=== PATIENT | female | born 2005 | race African-American/Black ===

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

== ENCOUNTER 2024-04-23 19:39 | Emergency (ER) | payer SELFPAY ==
[~2024-04-23] VITALS: Ht 160 cm; Wt 63.5 kg
[2024-04-23] MEDS ORDERED: SODIUM CHLORIDE 0.9% 1,000 ML IV STA (20:12)
[2024-04-23] MEDS ORDERED: ACETAMINOPHEN 500 MG TAB PO ONE (20:15)
[2024-04-23] MEDS ORDERED: KETOROLAC TROMETHAMINE 30 MG/ML SDV IV ONE (20:15)
[2024-04-23 20:42] LABS: BASO% 0.1 % (0-3); EOS% 1.2 % (0-8); HEMOGLOBIN 13.5 g/dl (12.0-16.0); LYMPH% 23.3 % (15-41); MEAN CORPUSCULAR HGB 26.9 pG CALC (26.0-32.0); MEAN CORPUSCULAR HGB CONC 30.8 g/dL CAL (32.0-36.0); MONO% 9.9 % (2-13); NEUT# 5.94 thou/uL (2.00-7.15); NEUT% 65.5 % (42-76); RED BLOOD COUNT 5.02 mill/uL (4.20-5.60); RED CELL DISTRI WIDTH 13.7 % (11.5-15.5)
[2024-04-23 20:43] LABS: URINE BILIRUBIN - DIPSTICK Negative (NEGATIVE); URINE BLOOD DIPSTICK Negative (NEGATIVE); URINE COLOR Yellow; URINE GLUCOSE - DIPSTICK Negative (NEGATIVE); URINE KETONE Negative (NEGATIVE); URINE LEUK ESTERASE Small (NEGATIVE); URINE NITRITE - DIPSTICK Negative (Negative); URINE PROTEIN - DIPSTICK 30 mg/dL (NEG-TRACE); URINE SPECIFIC GRAVITY 1.015
[2024-04-23 20:44] LABS: HEMATOCRIT 43.8 % (37.0-47.0); MEAN CELL VOLUME 87.3 fL CALC (80.0-100.0)
[2024-04-23 20:49] LABS: URINE RBC 0-2 RBC/hpf (0-5)
[2024-04-23 20:50] LABS: URINE SQUAMOUS EPITHELIAL CELL MODERATE EPI/hpf (0-FEW)
[2024-04-23 20:51] LABS: URINE BACTERIA FEW hpf
[2024-04-23 20:52] LABS: URINE AMORPH SEDIMENT FEW hpf (NONE-FEW)
[2024-04-23 20:54] LABS: BILIRUBIN, TOTAL 0.5 mg/dL (0.02-1.3); CREATININE 0.8 mg/dL (0.5-1.0); POTASSIUM 4.5 mmol/l (3.5-5.1); TOTAL PROTEIN 8.7 g/dL (6.3-8.2)
[2024-04-23] MEDS ORDERED: DICYCLOMINE HYD10 MG PO (22:28)
[2024-04-23] MEDS ORDERED: MIRALAX17 GM PO (22:28)
[2024-04-23 23:10] VITALS: BP 106/55
== END 2024-04-23 23:10 | disposition home or self-care (01) | DRG 392 ==
LOC: ED 19:39
PROVIDERS: Family Medicine
DX: R10.33 Periumbilical pain (principal)